=== PATIENT | female | born 1995 | race Caucasian/White ===

== ENCOUNTER 2022-03-16 13:15 | Inpatient (IN) | payer OTHER ==
[~2022-03-16] VITALS: Ht 165.1 cm; Wt 67.1 kg
[2022-03-17] MEDS ORDERED: PRENATAL TABLE1 EAC1 PO (16:42)
== END 2022-03-20 17:54 | disposition home or self-care (01) | DRG 807 ==
LOC: OB/GYN 03-17 13:15 → LDR 03-17 14:03 → OB/GYN 03-18 19:35
PROVIDERS: ADMIT Obstetrics & Gynecology; ATTEND Obstetrics & Gynecology
PROC: 4A1HXCZ Monitoring of Products of Conception, Cardiac Rate, External Approach (ICD-10-PCS; 2022-03-17)
PROC: 3E0P7VZ Introduction of Hormone into Female Reproductive, Via Natural or Artificial Opening (ICD-10-PCS; 2022-03-17)
PROC: 10E0XZZ Delivery of Products of Conception, External Approach (ICD-10-PCS; principal; 2022-03-18)
PROC: 3E033VJ Introduction of Other Hormone into Peripheral Vein, Percutaneous Approach (ICD-10-PCS; 2022-03-18)
DX: O80 Encounter for full-term uncomplicated delivery (principal); Z37.0 Single live birth; Z3A.39 39 weeks gestation of pregnancy; Z20.822 Contact with and (suspected) exposure to COVID-19